=== PATIENT | female | born 1955 | race Caucasian/White ===

== ENCOUNTER 2018-01-01 23:51 | Emergency (ER) | payer BC ==
[2018-01-02 00:34] LABS: INR-International Normal Ratio 0.9; Prothrombin Time 12.5 SEC (12.0-14.7)
[2018-01-02 00:35] LABS: PTT 29.4 SEC (22.9-36.1)
[2018-01-02 00:36] LABS: ALT (SGPT) 14 U/L (8-55); AST (SGOT) 25 U/L (5-34); Albumin 4.5 g/dL (3.4-4.8); Alkaline Phosphatase 85 U/L (40-150); Anion Gap 17 mmol/L (10-20); BUN (Urea Nitrogen) 6 mg/dL (9.8-20.1); Bilirubin, Total 0.4 mg/dL (0.2-1.2); CK (CPK) 547 U/L (29-168); Calc. Creatinine Clearance 0 mL/min (70-130); Calcium 9.5 mg/dL (7.8-10.44); Carbon Dioxide 25 mmol/L (23-31); Chloride 80 mmol/L (98-107); Estimated GFR-MDRD Greater than 90; Globulin 2.5 g/dL (2.4-3.5); Glucose 94 mg/dL (80-115); Potassium 3.6 mmol/L (3.5-5.1)
[2018-01-02 00:39] LABS: Sodium 118 mmol/L (136-145)
[2018-01-02 00:51] LABS: Band 2 % (5-11); Eosinophils 3 % (0-10); Hemoglobin 12.5 g/dL (12.0-16.0); Lymphocytes 36 % (21-51); MDiff Complete? YES; Mean Corpuscular HGB CONC 37.8 g/dL (32.0-36.0); Mean Corpuscular Hemoglobin 32.3 pg (27.0-31.0); Mean Corpuscular Volume 85.4 fL (78.0-98.0); Mean Platelet Volume 5.6 fL (7.4-10.4); Monocytes 6 % (0-10); Neutrophil 53 % (42-75); PLT Morphology Comment Appears Adequate; Platelet Count 262 thou/uL (130-400); RBC Distribution Width 10.2 % (11.5-14.5); RBC Morphology Normal; Red Blood Cell (RBC) Count 3.88 mill/uL (4.20-5.40); White Blood Cell (WBC) Count 6.3 thou/uL (4.8-10.8)
[2018-01-02 03:29] LABS: Prothrombin Time 12.4 SEC (12.0-14.7)
[2018-01-02 03:30] LABS: INR-International Normal Ratio 0.9; PTT 26.4 SEC (22.9-36.1)
[2018-01-02 12:42] LABS: FSP-Qualitative Normal (Normal)
== END 2018-01-02 03:53 | disposition home or self-care (01) ==
LOC: BURERS 23:51
DX: T63.091A Toxic effect of venom of other snake, accidental (unintentional), initial encounter (principal); K21.9 Gastro-esophageal reflux disease without esophagitis; I10 Essential (primary) hypertension; Z79.899 Other long term (current) drug therapy
CPT/HCPCS: 36415; 80053; 82550; 85025; 85362; 85610; 85730; 99284